=== PATIENT | male | born 1960 | race Caucasian/White ===

== ENCOUNTER 2019-12-29 11:48 | Emergency (ER) | payer OTHER, SELFPAY ==
[2019-12-29] VITALS (20 sets, daily range): BP systolic 130–180; BP diastolic 87–108; PULSE 74–90; RESP 11–30; TEMP 36.2; O2SAT 67–99
--- NOTE | ~2019-12-29 | XR_ITS ---
EXAMINATION: XR humerus LT INDICATION: Left humerus deformity, initial encounter TECHNIQUE: Two views of the left humerus are obtained on four radiographs. COMPARISON: None available FINDINGS: There is an acute, traumatic, closed, comminuted fracture of the left mid humerus. There ou r approximately 90 degrees of angulation at the fracture site between the two largest segment. A 9 cm segment of intervening bone is projects medial to the site of the fractures. Alignment at the elbow and shoulder appears normal. No additional acute osseous findings are evident. IMPRESSION: 1. Comminuted shaft fracture of the mid humerus with angulation. Reviewed, dictated and finalized at location A.
--- NOTE | ~2019-12-29 | CT_ITS ---
EXAMINATION: CT brain wo con DATE: 12/29/2019 18:08 INDICATION: Syncope. TECHNIQUE: Computed tomography (CT) of the head was performed without intravenous contrast. The mA wa s adjusted according to patient size. Iterative reconstruction technique was employed. The dose-lengt h product was 605.33 mGy-cm. COMPARISON: None FINDINGS: There is no intracranial hemorrhage, acute infarction, or abnormal intracranial mass lesion . The ventricles are normal in size. There is mild mucosal thickening in the ethmoid sinuses. The orb its are normal. The mastoid air cells are normal. IMPRESSION: 1. Normal brain. Reviewed, dictated and finalized at location A. IMPRESSION: 1. Normal brain.
--- NOTE | ~2019-12-29 | XR_ITS ---
EXAMINATION: XR humerus LT INDICATION: Left humerus post reduction TECHNIQUE: Two views of the left humerus are obtained. COMPARISON: 1157 hours FINDINGS: Again seen is a comminuted mid shaft fracture of the left humerus. The fracture has been pa rtially reduced. There are 2 cm of persistent anterior displacement of the largest distal fracture fr agment. Angulation at the fracture site has been reduced to approximately 30 degrees, previously 90 d egrees. A splint has been applied. IMPRESSION: 1. Partially reduced and splinted left humerus fracture. Reviewed, dictated and finalized at location A.
--- NOTE | ~2019-12-29 | CT_ITS ---
EXAMINATION: CTA chest PE protocol DATE: 12/29/2019 18:07 INDICATION: Shortness of breath. Chest pain. TECHNIQUE: Computed tomography angiography (CTA) of the chest was performed with 100 mL Omnipaque-350 intravenous contrast timed to evaluate the pulmonary arteries. Coronal maximum intensity projection 3D-reconstructions were created by the technologist. Automated exposure control and iterative reconst ruction technique were employed. The dose-length product was 813.82 mGy-cm. COMPARISON: Chest single view 12/29/2019 FINDINGS: There is mild atelectasis bilaterally. No pleural effusion. The heart size is normal. No pe ricardial effusion. There is no pulmonary embolus. There is mild thoracic spondylosis. IMPRESSION: 1. No pulmonary embolus. Reviewed, dictated and finalized at location A. IMPRESSION: 1. No pulmonary embolus.
--- NOTE | ~2019-12-29 | XR_ITS ---
EXAMINATION: XR chest 1V portable DATE: 12/29/2019 16:28 INDICATION: Dizziness. Nausea. TECHNIQUE: A single frontal view of the chest was obtained. COMPARISON: None. FINDINGS: The chest demonstrates clear lungs without pneumonia, pleural effusion, or pneumothorax. Th e heart size is normal. IMPRESSION: 1. No acute cardiopulmonary disease. Reviewed, dictated and finalized at location A.
--- NOTE | 2019-12-29 12:15 | PC.NURSE ---
1215: [address] Johnson.
--- NOTE | 2019-12-29 13:06 | ED.UPPEXIN ---
HPI - Extremity Injury (Upper) General Chief Complaint: Extremity Injury, Upper Stated Complaint: L arm deformity Time Seen by Provider: 12/29/19 11:50 Source: patient Mode of arrival: EMS History of Present Illness HPI narrative: This patient is a 59 year old male who presents for evaluation of left arm pain s/p fall. Patient states he was walking when his dog pulled him down. Patient fell onto his left arm . Patient state fell onto his left side. He had no LOC. He was found to have left arm deformity and severe pain. PAtient reports mild numbness to left fingers. complaint: injury to: left and arm Related Data Home Medications Medication Instructions Recorded Confirmed sertraline 50 mg PO 12/29/19 Allergies Allergy/AdvReac Type Severity Reaction Status Date / Time No Known Allergies Allergy Unverified 12/29/19 13:26 Review of Systems Review of Systems: All systems reviewed & are unremarkable except as noted in HPI and below PMFSH Past Medical History Medical History (Updated 12/29/19 @ 18:59 by Margarita Johnson MD) Anxiety Prostate cancer Social History Social History Gender identity (if verbalized by the patient): Male Exam Const: General: alert Orientation/consciousness: patient oriented x3 Other: severe distress, screaming in pain Eyes: Pupils: Equal, round and reactive pupils present EOM: EOMs intact bilaterally Chest: Chest palpation & inspection: normal inspection of the chest Resp: Effort & Inspection: normal respiratory effort and no retractions Auscultation: clear to auscultation bilaterally Cardio: Rate: regular rate Rhythm: regular rhythm Heart sounds: no murmurs GI: GI Palp: Yes Soft to palpation, No Tenderness to palpation present (GI), No Guarding due to palpation present (GI) and No Rigid due to palpation Back/Spine/Pelvis: Back: no CVA tenderness Skin: General skin exam: normal color Rashes: no rashes Neuro: General: patient oriented x3 Extrem: Other: left arm deformity with strong left radial pulse and sensation, no skin break down Psych: Affect: Anxious affect present Course Reevaluation(s) Reevaluation #1: Patient states he feels much better. He understands he will need to be transferred for evaluation of his humeral fracture Date: 12/29/19 Time: 13:29 Reevaluation #2: Patient has had 2 episodes on which he develops pain and he hyperventilates and he passes out. PAtient is extremely anxious about going home. CT brain to be performed due to fall with possible hitting head and CTA to rule out PE Date: 12/29/19 Time: 17:42 Reevaluation #3: Patient was able to walk to bathroom without assistance. He denies any dizziness or lightheadness. His pain is still under control. I have discussed precautions with and patient. Date: 12/29/19 Time: 18:53 Consultations Consultation #1: I have discussed case with DR. Hilario conditioning room worker and he reviewed films and recommends referral to [facility] Date: 12/29/19 Time: 13:30 Consultation #2: I have discussed case with Dr. Olson of [facility]. He states patient will need to follow up in clinic this week.He states they would not admit for pain control. Patient to be given precautions for compartment syndrom although unlikely. He states if patient has symptoms he should go to [place] [facility]. Date: 12/29/19 Time: 15:00 Vital Signs Vital signs: Vital Signs Temperature 97.1 F L 12/29/19 11:49 Pulse Rate 83 12/29/19 11:49 Respiratory Rate 18 12/29/19 11:49 Blood Pressure 141/91 H 12/29/19 11:49 Pulse Oximetry 98 12/29/19 11:49 Temperature 97.1 F L 12/29/19 12:10 Pulse Rate 88 12/29/19 18:34 Respiratory Rate 24 H 12/29/19 18:34 Blood Pressure 168/94 H 12/29/19 18:34 Pulse Oximetry 99 12/29/19 18:34 Procedures Orthopedic Fracture Reduction Fracture #1: Fracture Reduction date: 12/29/19 Fracture Reduction time: 12:20 Side: left Fracture Reduction Loca
--- NOTE | 2019-12-29 13:28 | PC.NURSE ---
1220: [address] Jhonson
[2019-12-29] MEDS: ONDANSETRON INJ 4 MG/2 ML VIAL IV PUSH ×2 (14:04→16:47)
--- NOTE | 2019-12-29 15:40 | PC.NURSE ---
This RN sat patient up to put sling on. Pt became very lightheaded and stated Im going to pass out Pt then becomes very diaphoretic and eyes begin to roll back in head. This RN lays the bed down and yells his name, pt does not respond. Pt has strong pulse. This RN sternal rubs pt. Pt comes to but slightly disoriented. MD at bedside at this time.
--- NOTE | 2019-12-29 16:02 | PC.NURSE ---
This RN slowly sitting pt up, pt still diaphoretic. ice chips and water offered. per VORB 1L of fluid ordered
[2019-12-29] MEDS: SODIUM CHLORIDE 0.9% IV 1,000 ML 999 ML IV CONT ×2 (16:12→18:00)
--- NOTE | 2019-12-29 16:16 | ECG_ITS ---
Measurements Intervals [place] Rate: 76 P: 48 [place]: 175 QRS: 80 QRSD: 149 T: 2 QT: 428 QTc: 482 Interpretive Statements SINUS RHYTHM RIGHT BUNDLE BRANCH BLOCK INFERIOR INFARCT, AGE INDETERMINATE BASELINE ARTIFACT- I, II, AVR, AVL ABNORMAL ECG Electronically Signed On 12-30-2019 7:27:23 CDT by David Whitney D.O.
[2019-12-29 16:47] LABS: Basophils Absolute Auto 0.1 K/mm3 (0.0-0.1); Basophils Percent Auto 0.4 % (0.2-1.2); Eosinophils Absolute Auto 0.1 K/mm3 (0-0.3); Eosinophils Percent Auto 0.4 % (0-4.4); Hematocrit 43.1 % (42.0-52.0); Hemoglobin 14.9 g/dL (14.0-18.0); Immature Granulocyte Absolute 0.06 K/mm3 (0.00-0.031); Immature Granulocyte Percent A 0.4 % (0-0.5); Lymphocytes Absolute Auto 1.15 K/mm3 (0.9-3.2); Lymphocytes Percent Auto 8.4 % (18.3-44.2); Mean Corpuscular HGB Conc 34.6 g/dl (32-36); Mean Corpuscular Hemoglobin 29.7 pg (26-34); Mean Corpuscular Volume 85.9 fl (80-100); Mean Platelet Volume 10.3 fl (7.4-10.4); Monocytes Absolute Auto 0.8 K/mm3 (0.1-0.6); Monocytes Percent Auto 5.8 % (2.6-8.5); Neutrophils Absolute Auto 11.6 K/mm3 (1.3-6.7); Neutrophils Percent Auto 84.6 % (45.5-73.1); Platelet Count Result 179 k/mm3 (150-375); Red Blood Count 5.02 M/mm3 (4.6-6.20); Red Cell Distribution Width 12.3 % (11.5-14.5); White Blood Count 13.7 K/mm3 (4.5-10.0)
[2019-12-29 16:54] LABS: INR 1.1; Prothrombin Time 13.7 Seconds (11.1-14.7)
[2019-12-29 16:55] LABS: Partial Thromboplastin Time 25.2 SECONDS (22.3-36.8)
[2019-12-29 16:56] LABS: Alanine Aminotransferase 21 U/L (4-50); Alkaline Phosphatase 67 U/L (38-126); Aspartate Amino Transferase 25 U/L (17-59); Bilirubin,Total 0.7 mg/dL (0.2-1.3); Blood Urea Nitrogen 13 mg/dL (9-20); Calcium 8.4 mg/dL (8.4-10.2); Carbon Dioxide 17 mmol/L (22-30); Chloride 110 mmol/L (98-107); Estimated CRCL calculation 84 ml/min; Estimated Glomerular Filt Rate > 60; Glucose 110 mg/dL (75-110); Potassium 3.4 mmol/L (3.4-5.0); Sodium 138 mmol/L (137-145)
--- NOTE | 2019-12-29 17:43 | PC.NURSE ---
This RN attempting to get pt up to go to the bathroom. Pt states oh my gosh this is excruciating pain. I feel like im gonna pass out again Pt sits back and starts breathing heavy and making noises. Pts then states here i go and his eyes roll in the back of his head and he becomes diaphoretic and not responding to verbal stimuli. this RN sternal rubs him and his eyes pop open and says oh oh i was gone for a minute! All vitals stable
--- NOTE | 2019-12-29 17:47 | PC.NURSE ---
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
--- NOTE | 2019-12-29 18:41 | PC.NURSE ---
Pt able to ambulate to the bathroom with stand by assistance. Pt steady on his feet.
== END 2019-12-29 19:14 | disposition home or self-care (01) ==
PROVIDERS: Emergency Provider General Practice
DX: S42.352A Displaced comminuted fracture of shaft of humerus, left arm, initial encounter for closed fracture (principal); F41.9 Anxiety disorder, unspecified; Z85.46 Personal history of malignant neoplasm of prostate; I45.10 Unspecified right bundle-branch block; R94.31 Abnormal electrocardiogram [ECG] [EKG]; W18.39XA Other fall on same level, initial encounter; Y93.K1 Activity, walking an animal
CPT/HCPCS: 24505; 36415; 70450; 71045; 71275; 73060; 80053; 85025; 85610; 85730; 93005; 96374; 96375; 96376; 99285; A4565; J1170; J2405; J2704; J3010; J7030; Q9967

== ENCOUNTER 2021-08-17 13:59 | Emergency (ER) | payer OTHER, SELFPAY ==
--- NOTE | ~2021-08-17 | XR_ITS ---
EXAMINATION: [id number] INDICATION: Left rib pain TECHNIQUE: A frontal view of the chest and 3 views of the left ribs were obtained. COMPARISON: None. FINDINGS: The lungs are free of acute opacities. There is no pleural effusion or pneumothorax. The ca rdiomediastinal silhouette is normal. The visualized bones and soft tissues are unremarkable. No dis placed rib fracture is identified. IMPRESSION: 1. No acute cardiopulmonary abnormality or evidence of displaced rib fracture. Reviewed, dictated and finalized at location B. [employer]
[2021-08-17 14:09] VITALS: BP 152/89; PULSE 75; RESP 20; TEMP 36.7; O2SAT 98
--- NOTE | 2021-08-17 14:45 | ED.GENADULT ---
HPI - General Adult General Chief complaint: Unspecified Stated complaint: Lt Side Pain due to fall Time Seen by Provider: 08/17/21 14:30 Source: patient and RN notes reviewed Mode of arrival: ambulatory Limitations: no limitations History of Present Illness HPI narrative: Patient presents today complaining of left rib pain. He was pulled over yesterday by his dog and he fell onto his anterolateral left ribs on a cement patio. He describes his pain in this area as a spasm. He currently rates his pain 7/10, which increases to 9/10 with deep breath. He has been taking Tylenol and ibuprofen yesterday with mild relief, but no medication or interventions today for pain. Denies shortness of breath. MD complaint: Rib pain Related Data Home Medications Medication Instructions Recorded Confirmed aspirin 81 mg PO DAILY 08/17/21 08/17/21 sertraline 50 mg PO DAILY 08/17/21 08/17/21 Allergies Allergy/AdvReac Type Severity Reaction Status Date / Time No Known Allergies Allergy Unverified 08/17/21 14:15 Review of Systems Review of Systems: CONSTITUTIONAL: Denies body aches, fever, chills, or sweats. EYES: Denies visual changes, redness, or discharge. ENT: Denies rhinorrhea, congestion, sore throat, or otalgia. CARDIOVASCULAR: Denies chest pain, palpitations, or edema. RESPIRATORY: Denies cough or dyspnea. GASTROINTESTINAL: Denies abdominal pain, nausea, vomiting, or diarrhea. GENITOURINARY: Denies dysuria or hematuria. SKIN: Denies rash, itching, or wounds. MUSCULOSKELETAL: Denies back pain, joint pain, or myalgia. Left lateral rib pain NEUROLOGIC: Denies headache, numbness, tingling, or weakness. PSYCH: Denies depression or anxiety. COUNTS INCLUDE 234 BEDS AT THE [facility] Past Medical History Medical History (Updated 08/17/21 @ 15:00 by Juliana Ruiz, CINDY, BC) Anxiety Prostate cancer Surgical History Surgical History (Updated 08/17/21 @ 15:00 by Juliana Ruiz, CINDY, BC) H/O prostatectomy Social History Social History Gender identity (if verbalized by the patient): Male Comments At time of signature, I have reviewed and agree with nursing past medical, surgical, social and family history unless otherwise noted. Please see nursing chart for further information. There is no relevant family history pertinent to the presenting complaint Exam Narrative: GENERAL: Well-appearing, well-nourished, and in no acute distress. HEAD: Normocephalic, atraumatic. EYES: EOMI. No redness or drainage. Conjunctivae normal. ENT: Mucous membranes pink and moist. NECK: Normal AROM. Supple. No lymphadenopathy. CHEST: No respiratory distress. Clear to auscultation. Mild tenderness of the left anterolateral ribs. No crepitus or step-off noted. No deformity noted. No edema noted. 1 small old yellowing bruise noted. No acute bruising noted. HEART: Regular rate and rhythm. No murmur appreciated. Normal peripheral pulses. EXTREMITIES: Normal range of motion. No edema. SKIN: Warm, dry, no rash. Capillary refill normal. Normal skin turgor. NEURO: No focal deficits. Alert and oriented x3. Gait steady. PSYCH: Normal affect. No signs of depression or anxiety. Course Course Level of Care: Express Care Visit Vital Signs Vital signs: Vital Signs Temperature 98.0 F 08/17/21 14:09 Pulse Rate 75 08/17/21 14:09 Respiratory Rate 20 08/17/21 14:09 Blood Pressure 152/89 H 08/17/21 14:09 Pulse Oximetry 98 08/17/21 14:09 Temperature 98.0 F 08/17/21 14:09 Pulse Rate 75 08/17/21 14:09 Respiratory Rate 20 08/17/21 14:09 Blood Pressure 152/89 H 08/17/21 14:09 Pulse Oximetry 98 08/17/21 14:09 Reviewed. Pt has been instructed to follow up with his PCP regarding his elevated blood pressure today. Medical Decision Making Differential Diagnosis Differential Diagnosis: Rib fracture, rib contusion Vital Signs Vital Signs: Vital Signs Temperature 98.0 F 08/17/21 14:
== END 2021-08-17 14:50 | disposition home or self-care (01) ==
PROVIDERS: Emergency Provider Nurse Practitioner
DX: S20.212A Contusion of left front wall of thorax, initial encounter (principal); W19.XXXA Unspecified fall, initial encounter; F41.9 Anxiety disorder, unspecified; Z85.46 Personal history of malignant neoplasm of prostate; Z90.79 Acquired absence of other genital organ(s); Z79.82 Long term (current) use of aspirin
CPT/HCPCS: 71101; 99213; G0463